=== PATIENT | male | born 1960 | race Two or more races ===

== ENCOUNTER 2019-12-23 11:14 | Inpatient (IN) | payer MEDICARE, OTHER ==
[~2019-12-23] VITALS: Ht 177.8 cm; Wt 95.3 kg
--- NOTE | 2019-12-23 11:25 | NUR ---
TYLER FROM [facility] TO ER BED 7. AAOX4. NOT IN RESP DISTRESS, BREATHING EVEN AND UNLABORED. 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 PT STATES THAT THE PAIN WAS SHARP SHOOTING. PT ON MONITOR. AWAITING MD FOR EVAL.
--- NOTE | 2019-12-23 11:42 | NUR ---
IV LINE ESTABLISHED ON LFA 20G, BLOOD DRAWN AND GIVEN TO ACCOUNT SERVICE ASSOCIATE. EKG DONE BY EMT
[2019-12-23] MEDS ORDERED: BUPR75TA8 PO (11:49)
[2019-12-23] MEDS ORDERED: CLOZ100T32 PO ×2 (11:49)
[2019-12-23] MEDS ORDERED: OMEP20CA15 PO (11:49)
[2019-12-23] MEDS ORDERED: LEVO75TA7 PO (11:49)
[2019-12-23] MEDS ORDERED: ATOR10TA PO (11:49)
[2019-12-23] MEDS ORDERED: DIVA-78 PO (11:49)
[2019-12-23] MEDS ORDERED: METO-357 PO (11:49)
[2019-12-23 11:54] LABS: BASOPHILS # (AUTO) 0.1 /CMM (0.0-0.2); BASOPHILS % (AUTO) 0.4 % (0.0-2.0); EOSINOPHILS % (AUTO) 1.5 % (0.0-6.0); HEMATOCRIT 45 % (39-51); HEMOGLOBIN 14.8 g/dL (13.5-17.5); LYMPHOCYTES # (AUTO) 1.5 /CMM (0.8-4.8); MEAN CORPUSCULAR HGB CONC 33 g/dl (31.0-36.0); MEAN CORPUSCULAR VOLUME 98 fL (80-96); MONOCYTES # (AUTO) 0.9 /CMM (0.1-1.30); MONOCYTES % (AUTO) 7.5 % (2.0-12.0); NEUTROPHILS # (AUTO) 8.8 /CMM (1.8-8.9); NEUTROPHILS % (AUTO) 77.6 % (43.0-81.0); PLATELET COUNT (AUTO) 159 /CMM (150-450); RED BLOOD CELL COUNT(AUTO) 4.59 MIL/uL (4.5-6.0); WHITE BLOOD COUNT (AUTO) 11.3 K/uL (4.3-11.0)
[2019-12-23 12:16] LABS: ALANINE AMINOTRANSFERASE 66 U/L (12-78); ALBUMIN 3.3 g/dL (3.4-5.0); ALKALINE PHOSPHATASE 64 U/L (46-116); ASPARTATE AMINOTRANSFERASE 38 U/L (15-37); BILIRUBIN,DIRECT 0.2 mg/dL (0.0-0.2); BILIRUBIN,TOTAL 0.8 mg/dL (0.2-1.0); CALCIUM, SERUM 8.8 mg/dL (8.5-10.1); CARBON DIOXIDE 25 mmol/L (21-32); CHLORIDE 107 mmol/L (98-107); CREATININE 1.5 mg/dL (0.6-1.3); GLUCOSE 93 mg/dL (74-106); POTASSIUM 4.7 mmol/L (3.5-5.1); SODIUM SERUM 140 mmol/L (136-145); TOTAL PROTEIN, SERUM 6.5 g/dL (6.4-8.2); UREA NITROGEN, BLOOD 18 mg/dL (7-18)
--- NOTE | 2019-12-23 12:48 | NUR ---
CALLED HOUSE SUP FOR BED
--- NOTE | 2019-12-23 13:56 | NUR ---
REPORT GIVEN TO ARUN MUSA FOR ABBY
[2019-12-23] MEDS ORDERED: ASPIRIN 81 MG TAB.CHEW PO SCH (14:00)
--- NOTE | 2019-12-23 14:00 | NUR ---
PT TRANSPORTED TO UNIT ON GURNEY WITH EMT AND RN AT BEDSIDE W/ ACLS PROTOCOL DURING TRANSPORT. NAD NOTED DURING TRANSPORT. PT AMBULATED FROM GURNEY TO BED W/O ASSIST ON STEADY
--- NOTE | 2019-12-23 14:15 | NUR ---
RN ADMITTING NOTES PT TRANSPORTED TO UNIT VIA WHEELCHAIR AT THIS TIME. REPORT RECEIVED FROM AISHA LOPEZ RN. PT AOX4. PT ABLE TO MAKE NEEDS KNOWN. NO SOB NOTED, NO S/S OF ANY ACUTE DISTRESS NOTED. NO C/O PAIN AT THIS TIME. RESPIRATIONS ARE EVEN AND UNLABORED WITH EQUAL RISE AND FALL IN CHEST. PT STABLE ON RA. IV ACCESS NOTED IN RAC G#22, INTACT, PATENT AND FLUSHING WELL. ACTIVE BOWEL SOUNDS AUSCULTATED IN ALL FOUR QUADRANTS, ABD IS SOFT AND NON TENDER. LUNGS ARE CLEAR TO AUSCULTATION, SKIN IS WARM TO TOUCH. PT ON EXTERNAL CARDICA MONITOR READING SR IN THE 80s. SAFETY PRECAUTION IN PLACE AND MAINTAINED AT ALL TIMES. BED IN LOWEST LOCKED POSITION, HOB ELEVATED, SIDE RAILS UP X 2, CALL LIGHT WITHIN REACH. WILL CONTINUE TO MONITOR Addendum: 12/23/19 at 1604 by NOREEN RODRIGUEZ RN MS RN ADMITTING NOTES PT TRANSPORTED TO UNIT VIA WHEELCHAIR AT THIS TIME. REPORT RECEIVED FROM AISHA LOPEZ RN. PT AOX4. PT ABLE TO MAKE NEEDS KNOWN. NO SOB NOTED, NO S/S OF ANY ACUTE DISTRESS NOTED. NO C/O PAIN AT THIS TIME. RESPIRATIONS ARE EVEN AND UNLABORED WITH EQUAL RISE AND FALL IN CHEST. PT STABLE ON RA. IV ACCESS NOTED IN RAC G#20, INTACT, PATENT AND FLUSHING WELL. ACTIVE BOWEL SOUNDS AUSCULTATED IN ALL FOUR QUADRANTS, ABD IS SOFT AND NON TENDER. LUNGS ARE CLEAR TO AUSCULTATION, SKIN IS WARM TO TOUCH. PT ON EXTERNAL CARDICA MONITOR READING SR IN THE 80s. SKIN INTACT, BELONGINGS ACCOUNTED FOR, SIGNED BY PT AND FILED IN CHART. SAFETY PRECAUTION IN PLACE AND MAINTAINED AT ALL TIMES. BED IN LOWEST LOCKED POSITION, HOB ELEVATED, SIDE RAILS UP X 2, CALL LIGHT WITHIN REACH. WILL CONTINUE TO MONITOR
[2019-12-23] MEDS ORDERED: ASPIRIN 81 MG TAB.CHEW ONE (14:20)
[2019-12-23] MEDS ORDERED: ATEN25TA PO (14:48)
[2019-12-23] MEDS ORDERED: FLUT1BLS IH (14:48)
[2019-12-23] MEDS ORDERED: BENZ0.5T43 PO (14:48)
[2019-12-23 16:00] VITALS: BP 120/62
[2019-12-23] MEDS ORDERED: ONDANSETRON HCL/PF 4 MG/2 ML VIAL IVP PRN (16:30)
[2019-12-23] MEDS ORDERED: Z GUARD REMEDY 2 OZ OINT TP PRN (16:30)
[2019-12-23] MEDS ORDERED: ACETAMINOPHEN 325 MG TABLET PO PRN (16:30)
[2019-12-23] MEDS ORDERED: MAG HYDROX/AL HYDROX/SIMETH 30 ML UDC PO PRN (16:30)
[2019-12-23] MEDS ORDERED: MAGNESIUM HYDROXIDE 30 ML UDC PO PRN (16:30)
[2019-12-23] MEDS ORDERED: HYDROCODONE/APAP 5/325MG TABLET PO PRN (16:30)
[2019-12-23] MEDS ORDERED: INFLUENZA VACCINE 2020-21 0.5 ML DISP.SYRIN IM ONE (17:00)
[2019-12-23] MEDS: DIVALPROEX SODIUM 500 MG TABLET.DR PO SCH (18:00)
[2019-12-23] MEDS: ENOXAPARIN SODIUM 40 MG/0.4 ML DISP.SYRIN SQ SCH (18:00)
--- NOTE | 2019-12-23 18:06 | NUR ---
ADMINISTERED FLU VACCINE IN LD AT THIS TIME. WILL CONTINUE TO MONITOR
[2019-12-23] MEDS: buPROPion 75 MG TABLET PO SCH (18:52)
--- NOTE | 2019-12-23 19:03 | NUR ---
RN CLOSING NOTES PT AWAKE IN BED AT THIS. PT REMAINED STABLE THROUGHOUT SHIFT. PT KEPT CLEAN AND DRY. ALL CARE, NEEDS, MEDICATIONS AND TREATMENT ADMINISTERED ANTICIPATED PER ORDER. SAFETY PRECAUTION IN PLACE AND MAINTAINED AT ALL TIMES. BED IN LOWEST LOCKED POSITION, HOB ELEVATED, SIDE RAILS UP X 2, CALL LIGHT WITHIN REACH. WILL ENDORSE TO SENIOR SOFTWARE QUALITY ENGINEER NURSE FOR ABBY
--- NOTE | 2019-12-23 19:26 | NUR ---
WATCH CASE POLISHER OPEN NOTES PT IS WATCHING TV IN BED. A/O X4. ON RA, NO SOB/ ACUTE RESPIRATORY DISTRESS NOTED. TELE MONITOR READING SR, 84. IV IN L FOREARM #20G IS PATENT AND INTACT. PT DENIES ANY PAIN AT THE MOMENT. BED IS IN LOWEST LOCKED POSITION WITH SIDE RAILS UP X3, SEMI FOWLERS. CALL LIGHT IS WITHIN REACH. WILL CONTINUE TO MONITOR.
[2019-12-23 20:00] VITALS: BP 104/72
[2019-12-23] MEDS: ATORVASTATIN 10 MG TABLET PO SCH (21:41)
[2019-12-23] MEDS: CLOZAPINE 100 MG TABLET PO SCH (21:41)
[2019-12-24] VITALS (8 sets, daily range): BP systolic 101–121; BP diastolic 62–76
--- NOTE | 2019-12-24 06:37 | NUR ---
BUS COMPANY MANAGER CLOSE NOTES PATIENT IS LAYING IN BED. A/O X4. STABLE ON RA, NO SOB/ ACUTE RESPIRATORY DISTRESS NOTED. TELE MONITOR READING SR, 84. IV IN L FOREARM #20G IS PATENT AND INTACT. PT IS ABLE TO AMBULATE. BED IS IN LOWEST LOCKED POSITION WITH SIDE RAILS UP X2, SEMI FOWLERS. CALL LIGHT IS WITHIN REACH. WILL ENDORSE TO AM NURSE.
[2019-12-24 06:57] LABS: BASOPHILS # (AUTO) 0.1 /CMM (0.0-0.2); BASOPHILS % (AUTO) 0.7 % (0.0-2.0); EOSINOPHILS % (AUTO) 3.5 % (0.0-6.0); HEMATOCRIT 43 % (39-51); HEMOGLOBIN 14.4 g/dL (13.5-17.5); LYMPHOCYTES % (AUTO) 26.2 % (20.0-44.0); MEAN CORPUSCULAR HGB CONC 33 g/dl (31.0-36.0); MEAN CORPUSCULAR VOLUME 99 fL (80-96); MONOCYTES # (AUTO) 0.7 /CMM (0.1-1.30); MONOCYTES % (AUTO) 9.1 % (2.0-12.0); NEUTROPHILS # (AUTO) 4.7 /CMM (1.8-8.9); NEUTROPHILS % (AUTO) 60.5 % (43.0-81.0); PLATELET COUNT (AUTO) 157 /CMM (150-450); WHITE BLOOD COUNT (AUTO) 7.8 K/uL (4.3-11.0)
[2019-12-24 07:17] LABS: CALCIUM, SERUM 8.7 mg/dL (8.5-10.1); CREATININE 1.6 mg/dL (0.6-1.3); MAGNESIUM 2.1 mg/dL (1.8-2.4); PHOSPHORUS 3.8 mg/dL (2.5-4.9); POTASSIUM 4.4 mmol/L (3.5-5.1)
--- NOTE | 2019-12-24 07:30 | NUR ---
CHEMICAL PROCESSING SUPERVISOR NOTES PT IN BED, ASLEEP, EASY TO AROUSE, ALERT AND ORIENTED, DENIES PAIN, RESPIRATIONS NORMAL AND NOT LABORED, ISOLATION PRECAUTIONS OBSERVED, CALL LIGHT WITHIN REACH, KEPT GLAZE CARRIER BED, NEEDS ATTENDED.
[2019-12-24] MEDS: PANTOPRAZOLE 40 MG TABLET.DR PO SCH (08:08)
[2019-12-24] MEDS: buPROPion 75 MG TABLET PO SCH ×2 (08:08→16:16)
[2019-12-24] MEDS: DIVALPROEX SODIUM 500 MG TABLET.DR PO SCH ×2 (08:09→16:16)
[2019-12-24] MEDS: LEVOTHYROXINE SODIUM 75 MCG TABLET PO SCH (08:09)
[2019-12-24] MEDS: CLOZAPINE 100 MG TABLET PO SCH ×2 (08:09→21:09)
[2019-12-24] MEDS: METOPROLOL SUCCINATE 50 MG TAB.SR.24H PO SCH (08:14)
[2019-12-24] MEDS ORDERED: IV NS 0.9% 1,000 ML IV PRN (09:00)
[2019-12-24 09:19] LABS: THYROID STIMULATING HORMONE 1.769 uIU/mL (0.358-3.74)
[2019-12-24] MEDS: ASPIRIN 81 MG TAB.CHEW PO SCH (09:35)
--- NOTE | 2019-12-24 12:04 | NUR ---
SW spoke with the patient via hospital line per COVID-19 precautions. Patient is alert and oriented x4. Patient was receptive to speaking with this SW. Patient was calm, thought process was circumstantial and SW provided redirection as needed throughout this assessment. Patient reported that [place] [address]. Patient stated he has been there for several years now. Patient reported a history of schizophrenia and patient reported he has been going to [facility] for 13 years to meet with his psychiatrist due to a history of suicidal ideation. Patient reports that he would like to return to [facility] post-discharge from [facility] to complete his treatment prior to returning to his [facility]. Plan: NINA will follow-up with Matthew at [facility] when patient is medically cleared for discharge. SW will remain available for all needs regarding this patient.
--- NOTE | 2019-12-24 13:23 | NUR ---
TURRET LATHE TENDER NOTES PT IN BED, ASLEEP, EASY TO AROUSE, ALERT AND ORIENTED, DENIES FURTHER CHEST PAIN, BREATHING PATTERN NORMAL, CALL LIGHT WITHIN REACH, SEEN BY DR. CHRISTIE TODAY.
[2019-12-24 17:09] LABS: BILIRUBIN,URINE NEGATIVE (NEGATIVE); BLOOD, URINE TRACE-INTA Ery/uL (NEGATIVE); COLOR,URINE YELLOW (YELLOW); LEUKOCYTE ESTERASE ,URINE NEGATIVE (NEGATIVE); NITRITE, URINE NEGATIVE (NEGATIVE); PROTEIN,URINE NEGATIVE (NEGATIVE); UGLUCOSE NEGATIVE (NEGATIVE); UROBILINOGEN,URINE 0.2 EU/dL (0.2)
[2019-12-24 17:19] LABS: CREATININE, URINE 64.7 MG/DL (30.0-125.0); URINE TOTAL PROTEIN 8.8 mg/dL (0-11.9)
[2019-12-24 17:20] LABS: BACTERIA,URINE Few /HPF (None Seen); SQUAMOUS EPITHELIAL CELL,UR Few /HPF (None Seen); WBC,URINE 0-2 /HPF (0-3)
[2019-12-24 17:35] LABS: EOSINOPHIL,URINE None Seen
--- NOTE | 2019-12-24 18:15 | NUR ---
CONFERENCE PRODUCER NOTES PT IN BED, ASLEEP, EASY TO AROUSE, ALERT AND ORIENTED, DENIES PAIN, NOT IN DISTRESS, TOLERATES ROOM AIR, AMBULATES WITH STEADY GAIT, CALL LIGHT WITHIN REACH, PM MEDS GIVEN, COMPLIANT WITH MEDS AND INTERVENTIONS, NEEDS ATTENDED, KEPT WARM AND COMFORTABLE IN BED.
--- NOTE | 2019-12-24 19:30 | NUR ---
LABORER DAIRY FARM OPENING NOTES RECEIVED PATIENT IN BED, ALERT AND ORIENTED X 4. AMBULATORY, VERBALLY RESPONSIVE AND ABLE TO FOLLOW DIRECTIONS. BREATHING REGULAR AND UNLABORED ON ROOM AIR. LEFT FOREARM G20 IV LINE INTACT AND PATENT, FLUSHING WELL WITH NO BLEEDING OR S/S OF INFILTRATION NOTED. ON CARDIAC MONITORING WITH NSR WT 85bpm. DENIES SUICIDAL IDEATION OR PAIN/DISCOMFORT AT THIS TIME. BED LOW AND LOCKED ON SEMI FOWLERS POSITION. CALL LIGHT IN REACH. WILL CONTINUE TO MONITOR.
[2019-12-24] MEDS: ENOXAPARIN SODIUM 40 MG/0.4 ML DISP.SYRIN SQ SCH (21:09)
[2019-12-24] MEDS: ATORVASTATIN 10 MG TABLET PO SCH (21:09)
[2019-12-25] VITALS: BP 106/66
[2019-12-25 00:07] VITALS: BP 106/66
--- NOTE | 2019-12-25 02:30 | NUR ---
FIXTURE RELAMPER NOTES PATIENT IN BED ASLEEP, NO S/S OF DISTRESS OBSERVED. REPORT GIVEN TO AGUILAR RN FOR CONTINUITY OF CARE.
--- NOTE | 2019-12-25 02:38 | NUR ---
RN OPENING NOTE RECEIVED PATIENT IN BED RESTING, SLEEPING ALERT ORIENTED X4 VERBALLY RESPONSIVE NO SOB NOT ACUTE DISTRESS NOTED ON ROOM AIR O2:97% IV SITE IS ON LEFT FOREARM INTACT PATENT CONTINENT TO BOWEL/BLADDER ,AMBULATORY WITH ASSIST,BED IS IN LOW POSITION AND LOCKED IMPLEMENT SAFETY MEASURE,BED ALARM IS ON,KEEP CALL LIGHT WITHIN REACH,CONTINUE TO MONITOR.
[2019-12-25 04:32] VITALS: BP 104/73
[2019-12-25 06:21] LABS: BASOPHILS % (AUTO) 0.6 % (0.0-2.0); HEMATOCRIT 44 % (39-51); HEMOGLOBIN 14.8 g/dL (13.5-17.5); LYMPHOCYTES # (AUTO) 1.7 /CMM (0.8-4.8); LYMPHOCYTES % (AUTO) 26.9 % (20.0-44.0); MEAN CORPUSCULAR HGB CONC 34 g/dl (31.0-36.0); MEAN CORPUSCULAR VOLUME 98 fL (80-96); MONOCYTES # (AUTO) 0.7 /CMM (0.1-1.30); MONOCYTES % (AUTO) 10.2 % (2.0-12.0); NEUTROPHILS # (AUTO) 3.7 /CMM (1.8-8.9); NEUTROPHILS % (AUTO) 58.3 % (43.0-81.0); PLATELET COUNT (AUTO) 153 /CMM (150-450); RED BLOOD CELL COUNT(AUTO) 4.51 MIL/uL (4.5-6.0); WHITE BLOOD COUNT (AUTO) 6.4 K/uL (4.3-11.0)
--- NOTE | 2019-12-25 06:31 | NUR ---
RN CLOSING NOTE PATIENT REMAINS ALERT ORIENTED X4 VERBALLY RESPONSIVE NO SOB NOT ACUTE DISTRESS NOTED,ON ROOM AIR 02:97% AMBULATORY CONTENT TO BOWEL/BLADDER IV SITE IS ON LEFT FOREARM INTACT PATENT ON COVID PENDING MONITORING ALL DUE MEDS GIVEN MD ORDERED KEEP CLEAN AND DRY ALL THE TIME,KEEP COMFORTABLE,IMPLEMENTED SAFETY MEASURE,KEPT CALL LIGHT WITHIN REACH,ALL NEEDS MET,ENDORSE NEXT COMING SHIFT FOR CONTINUATION OF CARE.
[2019-12-25 06:52] LABS: ALANINE AMINOTRANSFERASE 47 U/L (12-78); ALKALINE PHOSPHATASE 55 U/L (46-116); ASPARTATE AMINOTRANSFERASE 27 U/L (15-37); BILIRUBIN,TOTAL 0.7 mg/dL (0.2-1.0); CALCIUM, SERUM 8.6 mg/dL (8.5-10.1); CARBON DIOXIDE 28 mmol/L (21-32); CHLORIDE 105 mmol/L (98-107); CREATININE 1.4 mg/dL (0.6-1.3); GLUCOSE 88 mg/dL (74-106); MAGNESIUM 1.9 mg/dL (1.8-2.4); PHOSPHORUS 3.2 mg/dL (2.5-4.9); SODIUM SERUM 141 mmol/L (136-145); TOTAL PROTEIN, SERUM 6.1 g/dL (6.4-8.2); UREA NITROGEN, BLOOD 20 mg/dL (7-18)
[2019-12-25 06:57] LABS: CREATINE KINASE, TOTAL 37 U/L (39-308)
--- NOTE | 2019-12-25 07:24 | NUR ---
HEAVY FORGING MACHINE OPERATOR OPENING NOTES RECEIVED PATIENT IN BED, AWAKE, A/O X4. PATIENT IS ON ROOM AIR; BREATHING IS EVEN AND UNLABORED; NO SOB PRESENT AT THIS TIME. NO COMPLAINS OF PAIN AT THIS MOMENT. LFA IV ACCESS G #20 PRESENT AND INTACT. SAFETY PRECAUTIONS IN PLACE; BED IN LOW POSITION AND LOCKED, RAILS UP X2, CALL LIGHT WITHIN REACH. WILL CONTINUE TO MONITOR PATIENT.
[2019-12-25] MEDS: ASPIRIN 81 MG TAB.CHEW PO SCH (08:21)
[2019-12-25] MEDS: DIVALPROEX SODIUM 500 MG TABLET.DR PO SCH (08:21)
[2019-12-25] MEDS: CLOZAPINE 100 MG TABLET PO SCH (08:22)
[2019-12-25] MEDS: PANTOPRAZOLE 40 MG TABLET.DR PO SCH (08:22)
[2019-12-25] MEDS: LEVOTHYROXINE SODIUM 75 MCG TABLET PO SCH (08:22)
[2019-12-25] MEDS: METOPROLOL SUCCINATE 50 MG TAB.SR.24H PO SCH (08:23)
[2019-12-25] MEDS: buPROPion 75 MG TABLET PO SCH (08:24)
[2019-12-25 08:59] VITALS: BP 100/72
[2019-12-25 12:45] VITALS: BP 101/69
--- NOTE | 2019-12-25 15:32 | NUR ---
MS PRESCHOOL LEAD TEACHER NOTES PATIENT DISCHARGED BACK TO [facility] AND [facility] IN MEDICALLY STABLE CONDITION. PATIENT A/O X4 ON ROOM AIR. ALL DISCHARGE DOCUMENTATION READY AND SIGNED BY THE PATIENT. BELONGINGS ACCOUNTED FOR AND FORM SIGNED WELL. DISCHARGE INSTRUCTIONS GIVEN TO PATIENT AND TO RECEIVING NURSE [place] AT [facility]. IV ACCESS REMOVED BEFORE PATIENT LEFT THE FLOOR. PATIENT LEFT THE FLOOR VIA GURNEY ACCOMPANIED BY 2 implementation consultant AT 1530.
[2019-12-26 08:11] LABS: PTH, INTACT 43 pg/mL (15-65)
[2019-12-26 15:08] LABS: *SPE A/G RATIO 1.1 (0.7-1.7); *SPE ALPHA-1-GLOBULIN 0.2 g/dL (0.0-0.4); *SPE ALPHA-2-GLOBULIN 0.7 g/dL (0.4-1.0); *SPE BETA GLOBULIN 0.9 g/dL (0.7-1.3); *SPE GLOBULIN, TOTAL 2.7 g/dL (2.2-3.9); *SPE M-SPIKE Not Observed g/dL (Not Observed); *SPEGAMMA GLOBULIN 0.9 g/dL (0.4-1.8)
== END 2019-12-25 15:30 | disposition home or self-care (01) | DRG 205 ==
LOC: ER 11:18 → TELE2 13:18 → MEDSG2 12-25 13:02
PROVIDERS: ADMIT Internal Medicine; ATTEND Internal Medicine
DX: M94.0 Chondrocostal junction syndrome [Tietze] (principal); N17.0 Acute kidney failure with tubular necrosis; E44.0 Moderate protein-calorie malnutrition; I12.9 Hypertensive chronic kidney disease with stage 1 through stage 4 chronic kidney disease, or unspecified chronic kidney disease; F20.9 Schizophrenia, unspecified; N18.9 Chronic kidney disease, unspecified; E78.5 Hyperlipidemia, unspecified; Z79.899 Other long term (current) drug therapy; I25.10 Atherosclerotic heart disease of native coronary artery without angina pectoris; F32.9 Major depressive disorder, single episode, unspecified; R73.03 Prediabetes
CPT/HCPCS: 36415; 71045-TC; 80048-TC; 80053-TC; 80061-TC; 80076-TC; 81000-TC; 82550-TC; 82570-TC; 83735-TC; 83880; 83970; 84100-TC; 84155; 84155-TC; 84165; 84300-TC; 84439-TC; 84443-TC; 84484-TC; 85025-TC; 87081-TC; 93307-TC; G0378; J1650; Q2036; U0003